=== PATIENT | male | born 1985 | race Caucasian/White ===

== ENCOUNTER 2024-01-29 21:08 | Emergency (ER) | payer SELFPAY ==
[2024-01-29] MEDS: Lidocaine 1% 5 ML VIAL INJECT ONE (22:56)
== END 2024-01-30 01:01 | disposition home or self-care (01) ==
LOC: MW.ED 21:08
DX: L03.012 Cellulitis of left finger (principal)
CPT/HCPCS: 26010; 99283; 99283-25; J3490

== ENCOUNTER 2024-12-16 14:05 | Emergency (ER) | payer SELFPAY ==
[2024-12-16] MEDS: Ketorolac 30 MG/ML SDV IM ONE (14:30)
== END 2024-12-16 15:59 | disposition home or self-care (01) ==
LOC: MW.ED 14:05
DX: S62.610A Displaced fracture of proximal phalanx of right index finger, initial encounter for closed fracture (principal); W31.1XXA Contact with metalworking machines, initial encounter; Y99.0 Civilian activity done for income or pay
CPT/HCPCS: 29125; 73130; 96372; 99283; A9270; J1885